=== PATIENT | female | born 1990 ===

== ENCOUNTER 2018-02-13 12:31 | Inpatient (IN) | payer OTHER ==
[~2018-02-13] VITALS: Ht 154.9 cm; Wt 96.2 kg
[2018-02-13] MEDS ORDERED: PRENATAL TABLE1 EAC3 PO (13:54)
[2018-02-13] MEDS ORDERED: ZYRTEC10 MG PO (13:55)
== END 2018-02-15 13:37 | disposition home or self-care (01) | DRG 775 ==
LOC: OB/GYN 12:31 → LDR 12:31 → OB/GYN 22:44
PROC: 0UQMXZZ Repair Vulva, External Approach (ICD-10-PCS; principal; 2018-02-13)
PROC: 10E0XZZ Delivery of Products of Conception, External Approach (ICD-10-PCS; 2018-02-13)
PROC: 4A1HXCZ Monitoring of Products of Conception, Cardiac Rate, External Approach (ICD-10-PCS; 2018-02-13)
DX: O71.82 Other specified trauma to perineum and vulva (principal); Z3A.39 39 weeks gestation of pregnancy; Z37.0 Single live birth

== ENCOUNTER 2021-11-02 05:02 | Inpatient (IN) | payer OTHER ==
[~2021-11-02 05:02] MED LIST: PRENATAL TABLE1 EAC3 PO; ZYRTEC10 MG PO
[2021-11-03] MEDS ORDERED: PROFERRIN-FORT1 EACH (11:21)
== END 2021-11-04 13:23 | disposition home or self-care (01) | DRG 807 ==
LOC: OB/GYN 05:02 → LDR 05:02 → OB/GYN 11:05
PROVIDERS: ADMIT Obstetrics & Gynecology; ATTEND Obstetrics & Gynecology
PROC: 10E0XZZ Delivery of Products of Conception, External Approach (ICD-10-PCS; principal; 2021-11-02)
PROC: 4A1HXCZ Monitoring of Products of Conception, Cardiac Rate, External Approach (ICD-10-PCS; 2021-11-02)
PROC: 0UQMXZZ Repair Vulva, External Approach (ICD-10-PCS; 2021-11-02)
PROC: 3E033VJ Introduction of Other Hormone into Peripheral Vein, Percutaneous Approach (ICD-10-PCS; 2021-11-02)
DX: O71.82 Other specified trauma to perineum and vulva (principal); Z37.0 Single live birth; O99.820 Streptococcus B carrier state complicating pregnancy; Z3A.40 40 weeks gestation of pregnancy; Z20.822 Contact with and (suspected) exposure to COVID-19